=== PATIENT | male | born 1990 ===

== ENCOUNTER 2017-11-03 07:27 | Outpatient (CLI) | payer OTHER ==
[~2017-11-03] VITALS: Ht 180.3 cm; Wt 87.1 kg
[2017-11-03] MEDS ORDERED: FLONASE16 GM NASAL (09:25)
[2017-11-03] MEDS ORDERED: ZANTAC300 MG PO (09:25)
[2017-11-03] MEDS ORDERED: CIPRO500 MG PO (09:25)
== END 2017-11-03 07:40 | disposition home or self-care (01) ==
LOC: OFIC 805 07:27
DX: J45.998 Other asthma (principal); J32.8 Other chronic sinusitis; H61.23 Impacted cerumen, bilateral; J34.2 Deviated nasal septum; H93.13 Tinnitus, bilateral